=== PATIENT | male | born 1980 | race Caucasian/White ===

== ENCOUNTER 2023-10-08 23:39 | Emergency (ER) | payer BC, SELFPAY ==
--- NOTE | ~2023-10-08 | XR_ITS ---
XR forearm RT 2V 10/09/2023 01:02 INDICATION: Right shoulder and arm pain after fall downstairs PROCEDURE: 2 views right forearm and 4 views right shoulder COMPARISON: No prior studies for comparison. FINDINGS: Fracture, dislocation or subluxation is not identified. The soft tissues appear within norm al limits. No foreign bodies are identified. IMPRESSION: 1: NO ACUTE BONE OR JOINT ABNORMALITY IDENTIFIED. Reviewed, dictated and finalized at location A.
--- NOTE | ~2023-10-08 | CT_ITS ---
EXAMINATION: CT cervical spine wo con DATE: 10/09/2023 00:30 INDICATION: Neck pain after fall TECHNIQUE: Computed tomography (CT) of the cervical spine was performed without intravenous contrast. The dose-length product was 639 mGy-cm. Automated exposure control and iterative reconstruction tech nique were employed. COMPARISON: None FINDINGS: Lung apices are unremarkable. Straightening of cervical lordosis. Odontoid process is yadi l. Craniovertebral junction is normal. No evidence for perched facet. There is developmental fusion a t C6-7. No significant paraspinal soft tissue abnormality. There is mucosal thickening of the maxilla ry sinuses. There is mild submandibular lymphadenopathy, likely reactive. There is emphysema of the l jalen apices. IMPRESSION: 1. No acute abnormality of the cervical spine. Reviewed, dictated and finalized at location A.
--- NOTE | ~2023-10-08 | XR_ITS ---
XR shoulder RT min 2V 10/09/2023 01:03 INDICATION: Right shoulder pain after fall PROCEDURE: 4 views right shoulder COMPARISON: No prior studies for comparison. FINDINGS: Fracture, dislocation or subluxation is not identified. The soft tissues appear within norm al limits. No foreign bodies are identified. IMPRESSION: 1: NO ACUTE BONE OR JOINT ABNORMALITY IDENTIFIED. Reviewed, dictated and finalized at location A.
--- NOTE | ~2023-10-08 | CT_ITS ---
EXAMINATION: CT BRAIN W/O DATE: 10/09/2023 00:30 INDICATION: Status post trauma. Loss of consciousness. Head injury. TECHNIQUE: Computed tomography (CT) of the head was performed without intravenous contrast. The dose- length product was 681.00 mGy-cm. Automated exposure control and iterative reconstruction technique w ere employed. COMPARISON: No prior studies for comparison. FINDINGS: Normal brain parenchymal volume for age. Normal ramirez-white differentiation. No acute intrac ranial hemorrhage, infarction, mass or mass effect. No ventriculomegaly or midline shift. Midline sagittal images demonstrate a normal corpus callosum, c raniovertebral junction and sella turcica. Basilar cisterns are patent. Moderate mucosal thickening of the maxillary sinuses with air-fluid levels. Mastoids are pneumatized. No depressed skull fractures. IMPRESSION: 1. No acute intracranial abnormality. 2: Moderate maxillary sinus disease. Reviewed, dictated and finalized at location A.
--- NOTE | ~2023-10-08 | CT_ITS ---
EXAMINATION: CT chest abdomen pelvis w con DATE: 10/09/2023 07:01 CDT INDICATION: Status post fall downstairs. Trauma. TECHNIQUE: Computed tomography (CT) of the chest, abdomen, and pelvis was performed with 100 cc Omnip aque 350 intravenous contrast. The dose-length product was 1852.84 mGy-cm. Automated exposure control and iterative reconstruction technique were employed. COMPARISON: None FINDINGS: CHEST CT: Heart size normal. No significant pleural or pericardial effusion. No significant vascular abnormalit y. No endobronchial lesions. There is dependent atelectasis. There are perifissural nodules on the ri ght measuring 6 mm or less. No significant vascular abnormality. No lymphadenopathy. No pneumothorax. ABDOMEN/PELVIS CT: Mild fatty infiltration of the liver. The spleen, pancreas, right adrenal gland are unremarkable. 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 There is a 1.8 cm left adrenal mass. Normal appendix. Nonobstructive bowel gas pattern. Gallbladder is present. Small fat-containing umbilical hernia. No abnormal pelvic masses or fluid collections. No free air or free fluid. No significant vascular abnormality. No lymphadenop athy. No acute osseous abnormality. IMPRESSION: 1. No acute abnormality of the chest, abdomen or pelvis. 2: Right perifissural nodules measuring up to 6 mm. Follow-up low dose CT chest in 6 months recommend ed. 3: Left adrenal mass measuring 1.8 cm which appears vascular. Recommend correlation with MRI without and with contrast. 4: Horseshoe kidney. Reviewed, dictated and finalized at location A. IMPRESSION: 1. No acute abnormality of the chest, abdomen or pelvis. 2: Right perifissural nodules measuring up to 6 mm. Follow-up low dose CT chest in 6 months recommended. 3: Left adrenal mass measuring 1.8 cm which appears vascular. Recommend correla tion with MRI without and with contrast. 4: Horseshoe kidney.
[2023-10-08 23:43] VITALS: BP 160/104; PULSE 110; RESP 20; TEMP 36.9; O2SAT 99
--- NOTE | 2023-10-08 23:54 | ECG_ITS ---
SEE SCANNED COPY FOR CONFIRMED REPORT MTDD
[2023-10-09 00:01] VITALS: PULSE 97
--- NOTE | 2023-10-09 00:01 | PC.NURSE ---
CT called at this time and notified of green top at pt bedside.
[2023-10-09 00:26] LABS: Alanine Aminotransferase 24 U/L (6-50); Albumin Level 4.5 g/dL (3.5-5.1); Alkaline Phosphatase 57 U/L (38-126); Anion Gap 11 mmol/L (4-12); Aspartate Amino Transferase 24 U/L (17-59); Bilirubin,Total 0.3 mg/dL (0.2-1.3); Blood Urea Nitrogen 18 mg/dL (9-20); Calcium 9.1 mg/dL (8.4-10.2); Carbon Dioxide 22 mmol/L (22-30); Chloride 109 mmol/L (98-107); Estimated CRCL calculation 124 ml/min; Estimated Glomerular Filt Rate > 60; Glucose 118 mg/dL (65-110); Potassium 3.7 mmol/L (3.4-5.0); Sodium 142 mmol/L (137-145)
[2023-10-09 00:28] LABS: Ethanol 75 mg/dL (<10)
[2023-10-09 00:29] LABS: Basophils Absolute Auto 0.1 K/mm3 (0.0-0.1); Basophils Percent Auto 0.9 % (0.2-1.2); Eosinophils Absolute Auto 0.4 K/mm3 (0-0.3); Eosinophils Percent Auto 4.1 % (0-4.4); Hematocrit 44.5 % (42.0-52.0); Hemoglobin 14.5 g/dL (14.0-18.0); Immature Granulocyte Absolute 0.05 K/mm3 (0.00-0.031); Immature Granulocyte Percent A 0.5 % (0-0.5); Lymphocytes Absolute Auto 3.78 K/mm3 (0.9-3.2); Lymphocytes Percent Auto 40.7 % (18.3-44.2); Mean Corpuscular HGB Conc 32.6 g/dl (32-36); Mean Corpuscular Hemoglobin 29.1 pg (26-34); Mean Corpuscular Volume 89.2 fl (80-100); Mean Platelet Volume 10.1 fl (7.4-10.4); Monocytes Absolute Auto 0.6 K/mm3 (0.1-0.6); Monocytes Percent Auto 6.3 % (2.6-8.5); Neutrophils Absolute Auto 4.4 K/mm3 (1.3-6.7); Neutrophils Percent Auto 47.5 % (45.5-73.1); Platelet Count Result 273 k/mm3 (150-375); Red Blood Count 4.99 M/mm3 (4.6-6.20); Red Cell Distribution Width 13.2 % (11.5-14.5); White Blood Count 9.3 K/mm3 (4.5-10.0)
[2023-10-09 00:31] LABS: INR 0.9; Prothrombin Time 12.6 Seconds (11.1-14.7)
[2023-10-09 00:31] LABS: Estimated CRCL calculation 112 ml/min; Estimated Glomerular Filt Rate > 60
[2023-10-09 00:32] LABS: Partial Thromboplastin Time 20.9 Seconds (22.3-36.8)
[2023-10-09 00:36] LABS: Troponin I < 0.012 ng/mL (0.000-0.034)
--- NOTE | 2023-10-09 00:45 | ED.HEATRA ---
HPI - Head Injury General Chief complaint: Trauma Stated complaint: fall, shoulder injury Time Seen by Provider: 10/08/23 23:48 Source: patient Mode of arrival: ambulatory Limitations: no limitations History of Present Illness HPI Narrative: Patient is a 43-year-old male who presents the ED with his with report of a fall. Patient reports he was drinking alcohol earlier tonight, had several margaritas. He went to sleep around 9:30 p.m.. He thinks he woke up to use the restroom, but then states the next thing he remembers is waking up on the ground at the bottom of his flight of stairs. He reports 18-20 stairs. Unclear what happened or how he fell. Obvious head injury. Abrasions to right shoulder and right arm. Patient complains of pain to his right-sided neck, right shoulder, right forearm. C-collar placed upon arrival. Denies chest pain, shortness of breath, dizziness, lightheadedness, vision changes, abdominal pain, nausea, vomiting. Denies numbness or tingling in extremities. A&OX4. He is not on any blood thinners. Related Data Allergies Allergy/AdvReac Type Severity Reaction Status Date / Time No Known Allergies Allergy Verified 10/08/23 23:57 Review of Systems Review of Systems: CONSTITUTIONAL: Denies fever, chills, or sweats. ENT: Denies vision changes. CARDIOVASCULAR: Denies chest pain. RESPIRATORY: Denies dyspnea. GASTROINTESTINAL: Denies abdominal pain, nausea, vomiting. MUSCULOSKELETAL: See HPI. NEUROLOGIC: See HPI. All systems reviewed & are unremarkable except as noted in HPI and below Exam Narrative: GENERAL: Appears intoxicated, obese with BMI of 33.6, non-toxic, in mild acute distress d/t pain. HEAD: Normocephalic. Contusion/hematoma to R parietal scalp. No obvious facial trauma. EYES: PERRL/EOMI, conjunctiva clear. No nystagmus. NECK: No obvious deformities. TTP throughout midline spine and R sided paraspinal musculature. RESPIRATORY: Airway patent, respirations nonlabored. Clear to auscultation bilaterally, no rales, rhonchi, wheezing. CARDIOVASCULAR: Borderline tachycardic with regular rhythm without murmurs, rubs, or gallops. ABDOMINAL: Soft, no tenderness throughout abdomen, nondistended. Normoactive BS. MUSCULOSKELETAL: Moves all extremities. No gross deformities. Scattered abrasions throughout R forearm, no larger wounds or lacerations. Contusion to right mid back. TTP throughout R anterior shoulder w/o significant swelling. Full ROM of R shoulder. Contusion to R ventral forearm with focal tenderness. Mild tenderness throughout upper thoracic midline spine, no palpable deformities. No significant tenderness throughout lumbar spine. SKIN: Warm, dry, normal color. NEURO: A&O X3. Speech clear. Cranial nerves II-XII grossly intact. No ataxic movements. Steady gait. No focal neurologic deficits. PSYCHIATRIC: Mildly Anxious. Normal interaction. Course Vital Signs Vital signs: Vital Signs Temperature 98.5 F 10/08/23 23:43 Pulse Rate 110 H 10/08/23 23:43 Respiratory Rate 20 10/08/23 23:43 Blood Pressure 160/104 H 10/08/23 23:43 Pulse Oximetry 99 10/08/23 23:43 Oxygen Delivery Room Air 10/08/23 23:43 Temperature 98.5 F 10/08/23 23:43 Pulse Rate 97 10/09/23 00:01 Respiratory Rate 20 10/08/23 23:43 Blood Pressure 160/104 H 10/08/23 23:43 Pulse Oximetry 99 10/08/23 23:43 Oxygen Delivery Room Air 10/08/23 23:43 MDM - Head Injury MDM Narrative Medical decision making narrative: Patient presented to ED status post fall down a couple stairs, head injury, LOC. complaining of several areas of pain, worst to R sided neck. No gross deformities on exam. No focal neurologic deficits appreciated. Patient alert and oriented x4. GCS 15. Mildly tachycardic upon arrival, likely related to pain. Laboratory studies are unremarkable. EKG is without ischemic changes. Troponin is negative. Alcohol level 75. Patient did admit to drinking earlier today
[2023-10-09 01:18] VITALS: BP 158/88; PULSE 100; RESP 20; O2SAT 99
--- NOTE | 2023-10-09 02:02 | PC.NURSE ---
c-collar removed by JEAN-PAUL Rivero. Pt provided icepack for head pain.
[2023-10-09] MEDS: KETOROLAC 30 MG/ML VIAL (*BKC) IV PUSH (02:22)
[2023-10-09] MEDS: CYCLOBENZAPRINE HCL 5 MG TABLET PO (02:22)
[2023-10-09] MEDS: ACETAMINOPHEN 500 MG TABLET 1000 MG PO (02:22)
== END 2023-10-09 03:31 | disposition home or self-care (01) ==
PROVIDERS: Emergency Provider Physician Assistant; PCP Family Medicine
DX: S09.90XA Unspecified injury of head, initial encounter (principal); S16.1XXA Strain of muscle, fascia and tendon at neck level, initial encounter; S50.11XA Contusion of right forearm, initial encounter; R94.31 Abnormal electrocardiogram [ECG] [EKG]; R91.1 Solitary pulmonary nodule; E27.8 Other specified disorders of adrenal gland; Q63.1 Lobulated, fused and horseshoe kidney; J32.0 Chronic maxillary sinusitis; W10.9XXA Fall (on) (from) unspecified stairs and steps, initial encounter
CPT/HCPCS: 36415; 70450; 71260; 72125; 73030; 73090; 74177; 80053; 80307; 84484; 85025; 85610; 85730; 93005; 96374; 99284; A9270; J1885; Q9967

== ENCOUNTER 2024-06-23 14:38 | Outpatient (CLI) | payer BC, SELFPAY ==
--- NOTE | ~2024-06-23 | CT_ITS ---
CT Scan of the Chest without Contrast: Clinical Indication: Pulmonary nodule Technique: Contiguous sections were acquired throughout the chest without intravenous contrast. Dose reduction technique was used on this scan by utilizing automated exposure control and iterative recon struction technique. The dose-length product (DLP) was 259.01 mGy-cm. COMPARISON: 10/09/2023 Findings: There is no evidence of any significant mediastinal, hilar or axillary lymphadenopathy. The mediastin al soft tissues appear normal. There is no evidence of pleural or pericardial effusion. 6 mm and 7 mm right middle lobe pulmonary nodules are stable from prior exam (axial image 62). Images through the upper abdomen reveal stable 1.5 cm left adrenal nodule. Impression: Stable 6 mm and 7 mm right middle lobe pulmonary nodules, as above. Stable 1.5 cm adrenal nodule, most likely adenoma. Reviewed, dictated and finalized at [facility]. [employer] Impression: Stable 6 mm and 7 mm right middle lobe pulmonary nodules, as above. Stable 1.5 cm adrenal nodule, most likely adenoma.
== END 2024-06-23 14:39 | disposition home or self-care (01) ==
PROVIDERS: PCP Family Medicine; Visit Provider Physician Assistant
DX: R91.1 Solitary pulmonary nodule (principal); R91.8 Other nonspecific abnormal finding of lung field
CPT/HCPCS: 71250